=== PATIENT | female | born 1940 | race Caucasian/White ===

== ENCOUNTER → 2017-04-10 | Outpatient (CLI) | payer OTHER ==
[~2017-04-10] MED LIST: ACTOS PO; HCTZ PO; LOPRESSOR PO; LOTREL PO; ULTRAM PO; VYTORIN 10/40 T1 TAB PO; [UNRECOGNIZED DRUG - SUPPLY] MC
--- NOTE | ~2017-04-10 | BD1 ---
[facility] A Service of [facility] & [facility] RADIOLOGY TEXT RESULTS PATIENT: ZEN SUMNER LOCATION: [facility] : 41 UNIT #: [id number] AGE: [address]: Christ Henriquez MD SEX: F ORDER DR: [id number] [facility] [address] [place], [place] [address] [id number] O MR#: [id number] Acc #: [id number] NAME: ZEN SUMNER : 1940 SEX: F STUDY DATE/TIME: 04/10/2017 10:04 UNIT: [facility] ROOM: STUDY DESCRIPTION: BD Dexa Bone Dens 1+ Site Attending Physician: Christ Henriquez M.D. Referring Physician: Christ Henriquez M.D. Ordering Physician: Christ Henriquez M.D. Primary Care Physician: Christ Henriquez M.D. MEDICAL IMAGING REPORT This report is preliminary unless electronic signature is present EXAM Bone density spine hip 04/10/2017 HISTORY Postmenopause. Bone density scan performed upper 4 lumbar vertebral segments and proximal left femur in 193 pounds 76-year-old female. COMPARISON STUDIES No comparison. FINDINGS The L1-L4: Total bone mineral density 1.032 g per square centimeter for a T-score 0.1 standard deviations below mean for a reference population normal young individuals and a Z-score 2.3 standard deviation above the mean for age-match population. The proximal left femur: Total bone mineral density 0.942 g per square centimeter for a T-score 0 standard deviations from the mean for a reference population normal young individuals and a Z-score 1.8 standard deviation above the mean for age-match population. Left femoral neck: Bone mineral density 0.733 g per square centimeter for a T-score 1.0 standard deviations below mean for a reference population normal young individuals and a Z-score 1.1 standard deviation above the mean for age-match population. IMPRESSION Normal bone mineral density in the upper 4 lumbar vertebral segments overall and the proximal left femur. Please correlate with the patient's clinical status. Continued surveillance is recommended. STS. [facility] A Service of [facility] & [facility] RADIOLOGY TEXT RESULTS PATIENT: ZEN SUMNER LOCATION: [facility] : 41 UNIT #: [id number] AGE: [address]: Christ Henriquez MD SEX: F ORDER DR: Dictated by... Guy Martin M.D. THIS IS AN ELECTRONICALLY VERIFIED REPORT Guy Martin M.D. at 04/14/2017 5:16 PM Vivi TD: 04/13/2017 15:53 JOB #: [id number] MEDICAL IMAGING REPORT Page 1 of 1 COPY
--- NOTE | ~2017-04-10 | MY29 ---
[facility] A Service of [facility] RADIOLOGY TEXT RESULTS PATIENT: ZEN SUMNER LOCATION: [facility] : 41 UNIT #: [id number] AGE: [address]: Christ Henriquez MD SEX: F ORDER DR: [id number] [facility] [address] [place], [place] [address] [id number] O MR#: [id number] Acc #: [id number] NAME: ZEN SUMNER : 1940 SEX: F STUDY DATE/TIME: 04/10/2017 9:39 UNIT: [facility] ROOM: STUDY DESCRIPTION: MY [facility] SCREENING W/ CAD BILAT Attending Physician: Christ Henriquez M.D. Referring Physician: Christ Henriquez M.D. Ordering Physician: Christ Henriquez M.D. Primary Care Physician: Christ Henriquez M.D. MEDICAL IMAGING REPORT This report is preliminary unless electronic signature is present EXAM Digital screening mammogram 04/10/2017. HISTORY 76-year-old woman. No risk elevation. Patient states right breast larger than left. Annual screen. COMPARISON Mammograms date to 10/07/2012 with most recent 02/21/2016 [facility]. FINDINGS Digital imaging of each breast was completed utilizing screening protocol. Review includes FDA-approved CAD device. The breast parenchyma is partially fatty replaced. Subareolar duct prominence is noted in each breast with duct dominance and the mild nodular dominance noted in the right breast mid outer aspect. Stable dominance also noted in medial right subareolar breast location. There is no interval occurring breast mass. There are no suspicious microcalcifications and no architectural deformity. IMPRESSION Benign mammogram with stable dominance right breast. Annual screening recommended. Patients over the age of 40 are entered into a reminder system with target due date for the next mammogram. A result letter will also be sent to the patient. BIRADS: 2 Benign finding. Dictated by... Pedro Booker M.D. [facility] A Service of [facility] RADIOLOGY TEXT RESULTS PATIENT: ZEN SUMNER LOCATION: [facility] : 41 UNIT #: [id number] AGE: [address]: Christ Henriquez MD SEX: F ORDER DR: THIS IS AN ELECTRONICALLY VERIFIED REPORT Pedro Booker M.D. at 04/13/2017 2:09 PM Aziza TD: 04/13/2017 13:29 JOB #: [id number] MEDICAL IMAGING REPORT Page 1 of 1 COPY
== END | disposition home or self-care (01) ==
LOC: CWCC 09:15
DX: Z12.31 Encounter for screening mammogram for malignant neoplasm of breast (principal); Z78.0 Asymptomatic menopausal state
CPT/HCPCS: 77080; G0202